=== PATIENT | female | born 1995 | race Caucasian/White ===

== ENCOUNTER 2017-01-18 15:06 | Emergency (ER) | payer OTHER ==
[~2017-01-18] VITALS: Ht 167.6 cm; Wt 74.0 kg
[2017-01-18] MEDS ORDERED: NAPROSYN500 MG PO (17:07)
[2017-01-18 17:34] VITALS: BP 123/79
== END 2017-01-18 17:36 | disposition home or self-care (01) ==
LOC: RME 15:06 → EME 15:06 → RME 17:36
DX: S93.401A Sprain of unspecified ligament of right ankle, initial encounter (principal); W23.1XXA Caught, crushed, jammed, or pinched between stationary objects, initial encounter; Y93.16 Activity, rowing, canoeing, kayaking, rafting and tubing; Y92.89 Other specified places as the place of occurrence of the external cause; Z88.0 Allergy status to penicillin
CPT/HCPCS: 73610; 99281; 99283